=== PATIENT | female | born 1995 | race Caucasian/White ===

== ENCOUNTER 2017-05-27 18:29 | Emergency (ER) | payer OTHER ==
[~2017-05-27 18:29] MED LIST: CEPH500C24 PO; HYDR-4309 PO; METO-734 PO; NAPR220C12 PO; ONDA4TAB97 PO; OXYC-865 PO; RANI-324 PO; SUMA50TA34 PO; TOPI25CA9 PO
--- NOTE | 2017-05-27 18:45 | ER Report ---
History and Physical Time Seen By MD: 18:43 Hx. of Stated Complaint: ptpresents with hx of 4 episodes of syncope since 1300 today. States this usuually happens in conjunction with a migraine, wheich she has worse than usual HPI/ROS CHIEF COMPLAINT: syncope, migraine HISTORY OF PRESENT ILLNESS: This is a 22 year old female. She had a migraine start at 1300 hours today. Worse than usual for her. She has had 4 episodes of syncope today. She often does get syncope with migraine, but this seems worse. Does get dizzy with sitting or standing. She did go to work. Has had multiple episodes of vomiting with this; unable to keep food or liquids down. Has photophobia, but no vision changes. No chest pain or shortness of breath. Mild congestion. No fevers or chills. No abdominal pain. Normal bowel movements and urination. Denies any focal weakness or numbness in extremities or face. REVIEW OF SYSTEMS: As above. Allergies: Coded Allergies: topiramate (Verified Allergy, Unknown, 05/27/17) Home Meds Reported Medications Sumatriptan Succinate (IMITREX) 50 Mg Tablet, 50 MG PO PRN Y for HEADACHE 02/18/16 Discontinued Reported Medications Ranitidine Hcl (ZANTAC) 150 Mg Tablet, 150 MG PO BID, TAB 12/24/16 Topiramate (TOPIRAMATE) 25 Mg Cap.sprink, 25 MG PO QHS 12/24/16 Discontinued Scripts Oxycodone Hcl/Acetaminophen (PERCOCET 5-325 MG TABLET) 1 Each Tablet, 1 EACH PO Q6H for PAIN, #6 TAB 0 Refills Prov:JEFFREY CEDEÑO MD 12/24/16 Ondansetron Hcl (ZOFRAN) 4 Mg Tablet, 4 MG PO Q8H for Nausea, #15 TAB 0 Refills Prov:JEFFREY CEDEÑO MD 12/24/16 Reviewed Nurses Notes: Yes Hx Substance Use Disorder: No Hx Alcohol Use: No Constitutional Vital Sign - Last 24 Hours 05/27/17 05/27/17 05/27/17 05/27/17 18:34 18:38 18:40 18:45 Temp 98.2 Pulse 72 94 Resp 20 B/P (MAP) 134/77 (96) 134/77 111/70 (84) Pulse Ox 99 100 O2 Delivery Room Air 3/1105/27/17 05/27/17 05/27/17 19:00 19:15 19:30 19:45 Pulse 78 74 81 70 Resp 14 8 8 12 B/P (MAP) 108/68 (81) 99/57 (71) Pulse Ox 99 99 93 95 05/27/17 05/27/17 05/27/17 05/27/17 20:15 20:30 20:45 21:00 Pulse 81 61 97 87 Resp 14 10 18 11 B/P (MAP) 100/74 (83) 114/66 (82) Pulse Ox 96 98 100 98 05/27/17 05/27/17 05/27/17 05/27/17 21:15 21:30 21:45 22:00 Pulse 90 74 73 Resp 31 14 16 B/P (MAP) 89/53 (65) 86/51 (63) Pulse Ox 99 92 92 05/27/17 05/27/17 05/27/17 05/27/17 22:15 22:30 22:45 23:00 Pulse 73 68 63 68 Resp 15 12 13 B/P (MAP) 81/51 (61) Pulse Ox 93 93 93 05/27/17 05/27/17 05/27/17 05/28/17 23:15 23:30 23:45 00:00 Pulse 73 66 79 60 Resp 14 13 7 9 B/P (MAP) 83/46 (58) 91/57 (68) Pulse Ox 93 93 98 98 05/28/17 00:11 Pulse 85 Resp 16 B/P (MAP) 98/62 (74) Pulse Ox 95 O2 Delivery Room Air Physical Exam General Appearance: The patient is alert. No acute distress. Eyes: Pupils are equal, round. Reactive to light. No pallor, injection or icterus. Extraocular movements are intact. photophobia. ENT: Mucous membranes are moist. Normal oral mucosa. Posterior oropharynx is normal. Neck: Supple and non tender. No lymphadenopathy. Respiratory: Breathing easily and unlabored. Lungs are clear to auscultation. Cardiovascular: Regular rate and rhythm. No murmurs, gallops or rubs. Normal capillary refill. No edema. Gastrointestinal: Abdomen is soft and non tender. Nondistended. Normal active bowel sounds. Neurological: Alert and oriented x3. Cranial nerves II through XII show no acute deficits on my exam. No focal neurologic deficits in the extremities. Skin: Warm and dry. Musculoskeletal: Extremities are nontender. No tenderness in palpation of the back/spine. DIFFERENTIAL DIAGNOSIS: After history and physical exam, differential diagnosis was considered for migraine headache and syncope including but not limited to intracranial abnormality such as bleed or mass, migraine headache, vasovagal syncope, arrhythmia, dehydration, and blood loss. Medical Decision Making Data Points Result Diagram: 05/27/17 1850 05/27/17 1850 Laboratory Hematology Test 05/27/17 18:50 Red Blood Count 5.19 M/uL (4.17-5.56) Mean Corpuscular Volume 87.6 fL (80.0-96.0) Mean Corpuscular Hemoglobin 30.1 pg (26.0-33.0) Mean Corpuscular Hemoglobin Concent 34.3 g/dL (32.0-36.0) Red Cell Distribution Width 12.9 % (11.5-14.5) Mean Platelet Volume 8.2 fL (7.2-11.1) Neutrophils (%) (Auto) 80.8 % (39.4-72.5) Lymphocytes (%) (Auto) 13.9 % (17.6-49.6) Monocytes (%) (Auto) 5.0 % (4.1-12.4) Eosinophils (%) (Auto) 0.1 % (0.4-6.7) Basophils (%) (Auto) 0.2 % (0.3-1.4) Nucleated RBC Relative Count (auto) 0.0 /100WBC Neutrophils # (Auto) 8.2 K/uL (2.0-7.4) Lymphocytes # (Auto) 1.4 K/uL (1.3-3.6) Monocytes # (Auto) 0.5 K/uL (0.3-1.0) Eosinophils # (Auto) 0.0 K/uL (0.0-0.5) Basophils # (Auto) 0.0 K/uL (0.0-0.1) Nucleated RBC Absolute Count (auto) 0.00 K/uL Sodium Level 140 mmol/L (137-145) Potassium Level 3.5 mmol/L (3.5-5.0) Chloride Level 102 mmol/L (98-107) Carbon Dioxide Level 22 mmol/L (22-31) Blood Urea Nitrogen 9 mg/dl (7-18) Creatinine 0.60 mg/dl (0.52-1.04) Glomerular Filtration Rate Calc > 60.0 Random Glucose 91 mg/dl (75-110) Calcium Level 9.9 mg/dl (8.4-10.2) Total Bilirubin 0.7 mg/dl (0.2-1.3) Aspartate Amino Transf (AST/SGOT) 26 U/L (0-35) Alanine Aminotransferase (ALT/SGPT) 22 U/L (0-56) Alkaline Phosphatase 99 U/L (0-126) Troponin I < 0.012 ng/ml Total Protein 8.4 gm/dl (6.3-8.2) Albumin 4.8 g/dl (3.5-5.0) Human Chorionic Gonadotropin, Qual Negative (NEGATIVE) Chemistry Test 05/27/17 18:50 White Blood Count 10.1 k/uL (4.5-11.0) Red Blood Count 5.19 M/uL (4.17-5.56) Hemoglobin 15.6 g/dL (12.0-16.0) Hematocrit 45.5 % (34.0-47.0) Mean Corpuscular Volume 87.6 fL (80.0-96.0) Mean Corpuscular Hemoglobin 30.1 pg (26.0-33.0) Mean Corpuscular Hemoglobin Concent 34.3 g/dL (32.0-36.0) Red Cell Distribution Width 12.9 % (11.5-14.5) Platelet Count 260 K/uL (150-450) Mean Platelet Volume 8.2 fL (7.2-11.1) Neutrophils (%) (Auto) 80.8 % (39.4-72.5) Lymphocytes (%) (Auto) 13.9 % (17.6-49.6) Monocytes (%) (Auto) 5.0 % (4.1-12.4) Eosinophils (%) (Auto) 0.1 % (0.4-6.7) Basophils (%) (Auto) 0.2 % (0.3-1.4) Nucleated RBC Relative Count (auto) 0.0 /100WBC Neutrophils # (Auto) 8.2 K/uL (2.0-7.4) Lymphocytes # (Auto) 1.4 K/uL (1.3-3.6) Monocytes # (Auto) 0.5 K/uL (0.3-1.0) Eosinophils # (Auto) 0.0 K/uL (0.0-0.5) Basophils # (Auto) 0.0 K/uL (0.0-0.1) Nucleated RBC Absolute Count (auto) 0.00 K/uL Glomerular Filtration Rate Calc > 60.0 Calcium Level 9.9 mg/dl (8.4-10.2) Total Bilirubin 0.7 mg/dl (0.2-1.3) Aspartate Amino Transf (AST/SGOT) 26 U/L (0-35) Alanine Aminotransferase (ALT/SGPT) 22 U/L (0-56) Alkaline Phosphatase 99 U/L (0-126) Troponin I < 0.012 ng/ml Total Protein 8.4 gm/dl (6.3-8.2) Albumin 4.8 g/dl (3.5-5.0) Human Chorionic Gonadotropin, Qual Negative (NEGATIVE) EKG/Imaging EKG Interpretation 12 lead EKG: Rhythm: normal sinus rhythm, rate 88 [place]: normal QRS: normal ST segments: normal ED Course/Re-evaluation Clinical Indication for ER IV: Hydration, IV Access ED Course Ordered orthostatic vital signs after initial evaluation, but the patient is unable to do so because of dizziness/nausea. Went in and reevaluated the patient. Still with headache and nausea slightly improved. CT scan and x-ray are negative. EKG without any problems. Labs unremarkable with a CBC showing a normal white count but a slight left shift in differential, test negative, chemistries negative. At this point with normal head CT, we'll go ahead and give Toradol 30 mg IV, redosed with Phenergan 12.5 mg IV, and give 2 g of magnesium. Minimal improvement. Gave another liter of normal saline and Zyprexa 5mg IM. Headache almost completely gone with this. Patient feels like she can go home and sleep at this time. Decision to Disposition Date: May 27, 2017 Decision to Disposition Time: 23:44 Depart Departure Latest Vital Signs Vital Signs Date Time Temp Pulse Resp B/P (MAP) Pulse Ox O2 Delivery O2 Flow Rate FiO2 05/28/17 00:11 85 16 98/62 (74) 95 Room Air 05/27/17 18:38 98.2 Impression: Primary Impression: Migraine headache without aura Additional Impression: Syncope Condition: Improved Disposition: HOME OR SELF-CARE Patient Instructions: Migraine Headache (ED), Syncope (ED) Additional Instructions: Rest and increase fluid intake. The headache seems to be mostly gone now. If you have further headache, please see your regular doctor or return to the ER for further evaluation. Problem Qualifiers Primary Impression: Migraine headache without aura Status migrainosus presence: without status migrainosus Intractability: not intractable Qualified Codes: G43.009 - Migraine without aura, not intractable , without status migrainosus Additional Impression: Syncope Syncope type: unspecified Qualified Codes: R55 - Syncope and collapse HUGO NICHOLAS MD May 27, 2017 18:45
[2017-05-27] MEDS ORDERED: PROMETHAZINE 25 MG/ML 1 ML AMP IVP ONE ×2 (18:50→20:30)
[2017-05-27] MEDS ORDERED: NS(*) 0.9% 1000 ML BAG 1,000 ML IV ONE ×2 (18:50→22:10)
[2017-05-27] MEDS ORDERED: diphenhydrAMINE 50 MG/ML VIAL IVP ONE (18:50)
[2017-05-27 18:58] LABS: PLATELET COUNT, AUTOMATED 260 K/uL (150-450)
--- NOTE | 2017-05-27 20:16 | RADIOLOGY IMAGING REPORT ---
FACILITY: [facility] [place] PATIENT NAME: Stacy Rivas : 1995 MR: [id number] V: [id number] EXAM DATE: ORDERING PHYSICIAN: HUGO NICHOLAS TECHNOLOGIST: Location: [facility] [place] Patient: Stacy Rivas : 1995 Visit/Account:[id number] Date of Sevice: 05/27/2017 CHEST SINGLE AP HISTORY: Syncope. COMPARISON: None. FINDINGS: A single portable AP view of the chest is obtained. Lines/tubes: None. Lungs/pleura: Negative. Heart: Negative. Mediastinum: Negative. Bony structures/body wall: Negative. IMPRESSION: No acute cardiopulmonary process. Report Dictated By: Jayant Hernandez MD at 05/27/2017 8:11 PM Report E-Signed By: Jayant Hernandez MD at 05/27/2017 8:12 PM WSN:[id number]
--- NOTE | 2017-05-27 20:20 | RADIOLOGY IMAGING REPORT ---
FACILITY: [facility] PATIENT NAME: Stacy Rivas : 1995 MR: [id number] V: [id number] EXAM DATE: ORDERING PHYSICIAN: HUGO NICHOLAS TECHNOLOGIST: Location: [facility] Patient: Stacy Rivas : 1995 Visit/Account:[id number] Date of Sevice: 05/27/2017 EXAMINATION: CT Head without intravenous contrast HISTORY: Headache. Syncope. TECHNIQUE: Axial images were obtained from the skull base to the vertex without intravenous contrast . Sagittal and coronal reformatted images are also submitted. One of the following dose optimization techniques was utilized in the performance of this exam: Autom ated exposure control; adjustment of the mA and/or kV according to the patient's size; or use of an i terative reconstruction technique. Specific details can be referenced in the facility's radiology C T exam operational policy. COMPARISON: 12/24/2016. FINDINGS: Brain volume: Normal. Ventricles: Negative. Acute ischemic changes: None. Hemorrhage: None. Masses / edema: None. Oliveira-white: Negative. White matter: Negative. Vessels: Negative. Extra-axial: Negative. Calvarium / skull base: Negative. Visualized sinuses / orbits: Negative. IMPRESSION: Normal noncontrast head CT. Report Dictated By: Jayant Hernandez MD at 05/27/2017 8:12 PM Report E-Signed By: Jayant Hernandez MD at 05/27/2017 8:17 PM WSN:[id number]
[2017-05-27] MEDS ORDERED: KETOROLAC 30 MG/ML VIAL IVP ONE (20:30)
[2017-05-27] MEDS ORDERED: MAGNESIUM SUL* 2 GM/50 ML IVPB 50 ML IVPB ONE (20:30)
--- NOTE | 2017-05-27 20:46 | EKG ---
FACILITY: [facility] PATIENT NAME: SHANIA LUCIO : [id number] MR: [id number] V: [id number] EXAM DATE: ORDERING PHYSICIAN: HUGO NICHOLAS TECHNOLOGIST: CAROLIN Test Reason : NEAR SYNCOPE Blood Pressure : / mmHG Vent. Rate : 088 BPM Atrial Rate : 088 BPM P-R Int : 164 ms QRS Dur : 086 ms QT Int : 390 ms P-R-T Axes : 060 077 046 degrees QTc Int : 471 ms Normal sinus rhythm Normal ECG When compared with ECG of 24-DEC-2016 11:14, No significant change was found Confirmed by MIKAELA ZHOU ([id number]) on 05/28/2017 5:35:37 AM Referred By: Confirmed By:MIKAELA ZHOU
[2017-05-27] MEDS ORDERED: WATER STERILE 10 ML VIAL IM ONLY ONE (22:10)
[2017-05-27] MEDS ORDERED: OLANZapine 10 MG VIAL IM ONLY ONE (22:10)
[2017-05-28 00:11] VITALS: BP 98/62
== END 2017-05-28 00:30 | disposition home or self-care (01) ==
LOC: ER 18:39
DX: G43.009 Migraine without aura, not intractable, without status migrainosus (principal)
CPT/HCPCS: 70450; 71045; 84484; 84703; 85025; 93005; 96361; 96365; 96372; 96375; 96376; 99284; A4216; J1200; J1885; J2550; J3475; J3490; J7030; 82040; 82247; 82310; 82374; 82435; 82565; 82947; 84075; 84132; 84155; 84295; 84450; 84460; 84520

== ENCOUNTER → 2018-01-01 | Outpatient (REF) | payer OTHER ==
[~2018-01-01] MED LIST changes: -HYDR-4309 PO; +HYDR-653 PO; -RANI-324 PO; +RANI-366 PO
[2018-01-01 10:41] LABS: PLATELET COUNT, AUTOMATED 292 K/uL (150-450)
== END ==
PROVIDERS: ATTEND Nurse Practitioner Family
DX: R10.9 Unspecified abdominal pain (principal)
CPT/HCPCS: 82040; 82247; 82310; 82374; 82435; 82565; 82947; 84075; 84132; 84155; 84295; 84450; 84460; 84520; 85025

== ENCOUNTER → 2018-06-11 | Outpatient (REF) | payer OTHER ==
[2018-06-11 19:49] LABS: PLATELET COUNT, AUTOMATED 294 K/uL (150-450)
== END ==
PROVIDERS: ATTEND Nurse Practitioner Family
DX: R42 Dizziness and giddiness (principal)
CPT/HCPCS: 82040; 82247; 82310; 82374; 82435; 82565; 82947; 84075; 84132; 84155; 84295; 84450; 84460; 84484; 84520; 85025